=== PATIENT | female | born 1960 | race Caucasian/White ===

== ENCOUNTER 2017-06-14 11:09 | Day surgery (SDC) | payer BC ==
[~2017-06-14] VITALS: Ht 160 cm; Wt 61.8 kg
--- NOTE | ~2017-06-14 | OR ---
PATIENT'S NAME: MIRA APPIAH [facility] AGE: 56 Y [address] ROOM: [address] [id number] LOCATION: [facility] [place] ADMIT DATE: 06/14/2017 OR/Procedure Report DISCHARGE DATE: FAMILY PHYSICIAN: Daryn Sin MD ATTENDING PHYSICIAN: Yordy Mai SURGEON: Yordy Mai MD BOILERMAKER: DATE OF PROCEDURE: 06/14/2017 PREOPERATIVE DIAGNOSIS: Stress urinary incontinence. POSTOPERATIVE DIAGNOSIS: Stress urinary incontinence. PROCEDURES PERFORMED: Mid-urethral tension-free suspension. ANESTHESIA: General. INDICATIONS: This is a 56-year-old lady with classic stress urinary incontinence. She has undergone preoperative evaluation including bedside urodynamic studies. Her incontinence has progressed to the point where she would like repair. She presents at this time for a mid urethral suspension. She has been counseled regarding the indications, risks, and benefits. She wishes to proceed. DESCRIPTION OF PROCEDURE: Having obtained her informed consent, the patient was taken to the operating room. She was prepped and draped sterilely and in lithotomy position. General anesthesia was administered. A 16-[place] Island[place] Mccabe catheter was placed. The mid urethra was palpated. The vaginal mucosa was infiltrated at that level with 1% lidocaine with epinephrine. A 1-cm incision was made vertically. That was carried back just a bit laterally toward the endopelvic fascia. The endopelvic fascia was not disrupted. Separate stab incisions were then made suprapubically. Transfer trocars were passed through those incisions behind the pubic bone and out through the endopelvic fascia at the level of the mid urethra. Cystoscopy was then undertaken. We have not violated the bladder mucosa, and we were in a good position on the urethra. With that confirmation, the mesh was secured to the trocars. The trocars were pulled back up through the abdominal wall with a curved Lawrence scissors insinuated between the urethra and the bladder, ensuring that there was no tension. Excess was trimmed. Further antibiotic irrigation was undertaken. The vaginal incision was then closed with a running, locking 2-0 Vicryl. Steri-Strips were used on the stab incisions above. The case was concluded. PATIENT'S NAME: MIRA APPIAH [facility] AGE: 56 Y [address] ROOM: [address] [address] LOCATION: [facility] [place] ADMIT DATE: 06/14/2017 OR/Procedure Report DISCHARGE DATE: FAMILY PHYSICIAN: Daryn Sin MD ATTENDING PHYSICIAN: Yordy Mai The patient tolerated the procedure well. BLOOD LOSS: Less than 50 mL. COUNT RESULTS: All counts were correct. POSTOPERATIVE CONDITION: The patient returned to the recovery awake and in stable condition. YORDY MAI MD [facility]/modl /[id number] CC: MD Louise Gresham MD d: t: 06/14/17 2135, OPERATIVE SUMMARY
[~2017-06-14 11:09] MED LIST: BRISDELLE7.5 MG PO; ZETIA10 MG PO; [UNRECOGNIZED DRUG - OTHER]
[2017-06-14 12:04] LABS: BASOPHIL # 0.1 K/uL (0.0-0.2); BASOPHIL % 0.7 %; EOSINOPHIL # 0.1 K/uL (0.0-0.5); EOSINOPHIL % 1.7 %; HEMATOCRIT 42.5 % (33.0-46.0); HEMOGLOBIN 14.6 g/dL (10.0-15.0); IMMATURE GRANULOCYTE % 0.1 %; LYMPHOCYTE # 2.7 K/uL (0.8-4.0); LYMPHOCYTE % 39.4 %; MCH 31.7 pg (27.0-34.0); MCHC 34.4 gm/dL (32.0-36.5); MCV 92.2 fl (83.0-98.0); MONOCYTE # 0.6 K/uL (0.0-1.0); MONOCYTE % 8.2 %; MPV 9.6 fl (9.4-12.4); NEUTROPHIL # (ANC) 3.4 K/uL (1.8-7.8); NEUTROPHIL % 49.9 %; NRBC % 0 /100WBC (0-0.00); PLATELET COUNT 308 K/uL (150-450); RBC 4.61 M/uL (3.50-5.50); WBC 6.9 K/uL (4.0-11.0)
[2017-06-14 12:27] LABS: ANION GAP 9.4 (10.0-19.0); CALCIUM 9.2 mg/dL (8.5-10.5); CREATININE 0.8 mg/dL (0.5-1.1); POTASSIUM 4.4 mMol/L (3.7-5.1); TOTAL BILIRUBIN 0.6 mg/dL (0.0-1.5); TOTAL PROTEIN 7.7 g/dL (6.0-8.4)
--- NOTE | 2017-06-15 02:51 | NUR ---
SIGNIFICANT EVENT: Pt alert & oriented. VSS on 1 to 2L, titrated to RA at second assessment. Clear liquid diet. 1PA. Mccabe to be dc'd at 0600. Ackworth x1 at 2121. PIV to L) wrist to be SL after this bag - pt tolerating oral fluids well. Dressing to mons with serosanguineous drainage. Pleasant and cooperative with cares.
--- NOTE | 2017-06-15 09:52 | NUR ---
DISCHARGE: D: ORDERS RECEIVED FOR THE PATIENT TO BE DISCAHRGED TO HOME WITH SPOUSE. I: DISMISSAL INSTRUCTIONS WERE PREPARED AND REVIEWED WITH THE PATIENT AND HER VIRTUALLY. THE FOLLOWING INFORMATION WAS DISCUSSED INCLUDING KRAMES TEACHING SHEETS PROVIDED: STRESS URINARY INCONTINENCE, HAVING A MIDURETHRAL SLING SURGERY, PREVENTING DVT AND TVT INSTURCTIONS FROM [facility]. R: THE PATIENT AND HER BOTH VERBALIZED UNDERSTANDING OF DISMISSAL EDUCATION AT THE TIME OF TEACHING WITH NO FURTHER QUESTIONS. P: THE ABOVE INFORMATION WAS SHARED WITH THE PRIMARY NURSE AND THE CHARGE NURSE THAT THE DISMISSAL EDUCATION WAS COMPLETED. THE PATIENT IS READY FOR DISCHARGE TO THE FRONT DOOR VIA WHEEL CHAIR BY NURSING STAFF.
--- NOTE | 2017-06-15 11:25 | NUR ---
DISCHARGE INSTRUCTIONS & TEACHING DONE BY VIRTUAL NURSE.PT.WAS DISMISSED PER W/C TO CAR ACCOMP BY SPOUSE & MUSEUM PREPARATOR FOR DISMISSAL TO HOME.
== END 2017-06-15 11:30 | disposition disaster alternative care site (69) ==
LOC: GSDC 11:09 → GMSU 11:09 → GSDC 06-15 11:30
PROVIDERS: Urology
PROC: 0TSD0ZZ Reposition Urethra, Open Approach (ICD-10-PCS; principal; 2017-06-14)
DX: N39.3 Stress incontinence (female) (male) (principal); N32.81 Overactive bladder; Z23 Encounter for immunization
CPT/HCPCS: C1771; G0008; J0690; J1100; J1956; J2001; J2250; J2300; J2405; J7030